=== PATIENT | female | born 1955 | race Caucasian/White ===

== ENCOUNTER 2017-08-27 16:32 | Emergency (ER) | payer MEDICARE, OTHER ==
[~2017-08-27] VITALS: Ht 167.6 cm; Wt 80.6 kg
[~2017-08-27 16:32] MED LIST: ATOR20TA42 PO; DIAZ10 PO; ECOT325T PO; HYDR10SO PO; HYDROCODONE PO; MOTI25CH PO; OMEP20TA OR; OMEP20TA PO; SOMA350T PO
[2017-08-27 16:42] VITALS: BP 145/65; PULSE 60; RESP 18; TEMP 98.6; O2SAT 99
[2017-08-27] MEDS ORDERED: LISI-515 PO (16:59)
[2017-08-27] MEDS ORDERED: ATOR20TA15 PO (16:59)
[2017-08-27] MEDS ORDERED: CELE20TA PO (16:59)
[2017-08-27] MEDS ORDERED: TIZA2TAB PO (16:59)
[2017-08-27] MEDS ORDERED: CLON0.1T PO (16:59)
[2017-08-27] MEDS ORDERED: HYDR-3583 PO (16:59)
--- NOTE | 2017-08-27 17:06 | PD ---
HPI Chief Complaint: Wound/Suture/Staple Re-Check Time Seen by Provider: 17:01 Travel History International Travel<30 days: No Contact w/Intl Traveler<30days: No Traveled to known affect area: No History of Present Illness HPI 62-year-old female presents the emergency Department with wound to the sole of the right distal lateral foot at the base of the fifth digit which consisted of a puncture wound from a "tahira tack". Patient has increased pain , warmth, and erythema to this area. Patient is unsure of her last tetanus shot. Pain is currently 7 out of 10. There is no fever or chills. Pain is worse with ambulation. Patient is allergic to acetaminophen, codeine, and propoxyphene. PFSH Past Medical History Arthritis: Yes Blood Disorders: No Cancer: No Cardiovascular Problems: No Cerebrovascular Accident: Yes Diabetes: No Diminished Hearing: No Endocrine: No Gastrointestinal Disorders: Yes Glaucoma: No Genitourinary: No Hepatitis: Yes (C) Hiatal Hernia: No Hypertension: No Immune Disorder: No Medical other: Yes (CATARAX LEFT EYE) Musculoskeletal: Yes Neurologic: Yes (VERTIGO) Psychiatric: No Reproductive: No Respiratory: No Immunizations Current: Yes Tetanus Vaccination: > 5 Years Influenza Vaccination: Yes ?: Not Menopausal: Yes Past Surgical History Abdominal Surgery: No Cardiac Surgery: No Cholecystectomy: Yes Ear Surgery: No Eye Surgery: No Genitourinary Surgery: No Gynecologic Surgery: No Neurologic Surgery: No Oral Surgery: Yes (T&A) Thoracic Surgery: No Tonsillectomy: Yes (1959--T&A) Other Surgery: Yes Social History Alcohol Use: Yes (WEEKENDS) Tobacco Use: Yes (1.5 PPD) Substance Use: No Allergies-Medications (Allergen,Severity, Reaction): Coded Allergies: acetaminophen (Unverified Allergy, Severe, NAUSEA, 08/27/17) propoxyphene (Unverified Allergy, Severe, NAUSEA, 08/27/17) codeine (Unverified Allergy, Intermediate, NAUSEA, 08/27/17) Reported Meds & Prescriptions Reported Meds & Active Scripts Active Bactrim DS (Sulfamethoxazole-Trimethoprim) 800-160 Mg Tab 1 Tab PO BID Cipro (Ciprofloxacin HCl) 500 Mg Tab 500 Mg PO BID 7 Days Reported Clonidine (Clonidine HCl) 0.1 Mg Tab 0.1 Mg PO BID Tizanidine (Tizanidine HCl) 2 Mg Tab 2 Mg PO TID Celexa (Citalopram Hydrobromide) 20 Mg Tab 20 Mg PO DAILY Hydrocodone-Acetaminophen 10-325 mg Tab 1 Tab PO Q6H PRN Atorvastatin (Atorvastatin Calcium) 20 Mg Tab 20 Mg PO HS Lisinopril 20 Mg Tab 20 Mg PO DAILY Review of Systems Except as stated in HPI: all other systems reviewed are Neg General / Constitutional: No: Fever Eyes: No: Visual changes HENT: No: Headaches Cardiovascular: No: Chest Pain or Discomfort Respiratory: No: Shortness of Breath Gastrointestinal: No: Abdominal Pain Genitourinary: No: Dysuria Musculoskeletal: Positive: Pain (see history of present illness) Skin: Positive Lesions (see history of present illness), No Rash Neurologic: No: Weakness Psychiatric: No: Depression Endocrine: No: Polydipsia Hematologic/Lymphatic: No: Easy Bruising Physical Exam Narrative GENERAL: Patient appears in mild distress. SKIN: Warm and dry. Normal color. Normal turgor. Patient has obvious puncture wound to the base of the fifth digit of the right foot. There is localized warmth, erythema extending approximately 2 cm in diameter. No significant bleeding or drainage is noted. No streaking.. Swelling is minimal. HEAD: Atraumatic. Normocephalic. EYES: Pupils equal and round. No scleral icterus. No injection or drainage. ENT: No nasal bleeding or discharge. Mucous membranes pink and moist. Pharynx is clear. Airway is patent. NECK: Trachea midline. Supple and nontender. CARDIOVASCULAR: Regular rate and rhythm. RESPIRATORY: No accessory muscle use. Clear to auscultation. Breath sounds equal bilaterally. MUSCULOSKELETAL: Extremities without clubbing, cyanosis, or edema. No obvious deformities. Patient is tenderness with palpation to the injured area of the right foot. NEUROLOGICAL: Awake and alert. No obvious cranial nerve deficits. Motor grossly within normal limits. Five out of 5 muscle strength in the arms and legs. Normal speech. PSYCHIATRIC: Appropriate mood and affect; insight and judgment normal. Data Data Last Documented VS Vital Signs Date Time Temp Pulse Resp B/P (MAP) Pulse Ox O2 Delivery O2 Flow Rate FiO2 08/27/17 16:42 98.6 60 18 145/65 (91) 99 Orders Orders Tetanus/Diphtheria Tox Adult (Tetanus/Di (12/19/17 17:15) Sulfamet-Trimeth Ds 800-160 Mg (Bactrim (08/27/17 17:15) Ciprofloxacin (Cipro) (08/27/17 17:15) [facility] Medical Decision Making Medical Screen Exam Complete: Yes Emergency Medical Condition: Yes Differential Diagnosis Puncture wound to the right foot. Cellulitis. Foreign body. Narrative Course X-ray of the right foot is ordered. Patient is given tetanus 0.5 mg IM. Patient is given Bactrim DS by mouth 1. Patient is given Cipro 500 mg by mouth 1. Patient refuses x-ray to rule out foreign body. Patient will be treated with Bactrim DS twice a day 7 days. Patient also continued on Cipro 500 mg twice a day 7 days. Patient can take Tylenol [id number] as needed for pain. Recommend warm soapy soaks twice daily for the next several days. Patient follow-up with primary care physician or return to emergency department if symptoms do not improve with the above treatment plan. Diagnosis Primary Impression: Puncture wound of sole of right foot without complication Qualified Codes: S91.331A - Puncture wound without foreign body, right foot, initial encounter Additional Impression: Cellulitis Qualified Codes: L03.115 - Cellulitis of right lower limb Referrals: Primary Care Physician Patient Instructions: Cellulitis (ED), General Instructions Additional Instructions: Patient is given tetanus 0.5 mg IM. Patient is given Bactrim DS by mouth 1. Patient is given Cipro 500 mg by mouth 1. Patient refuses x-ray to rule out foreign body. Patient will be treated with Bactrim DS twice a day 7 days. Patient also continued on Cipro 500 mg twice a day 7 days. Patient can take Tylenol [id number] as needed for pain. Recommend warm soapy soaks twice daily for the next several days. Patient follow-up with primary care physician or return to emergency department if symptoms do not improve with the above treatment plan. Scripts Sulfamethoxazole-Trimethoprim (Bactrim DS) 800-160 Mg Tab 1 TAB PO BID for Infection, #14 TAB 0 Refills Prov: Himanshu Campos MD 08/27/17 Ciprofloxacin (Cipro) 500 Mg Tab 500 MG PO BID for Infection for 7 Days, #14 TAB 0 Refills Prov: Himanshu Campos MD 08/27/17 Disposition: 01 DISCHARGE HOME Condition: Stable Sawyer Carrizales Aug 27, 2017 17:06
[2017-08-27] MEDS ORDERED: CIPROFLOXACIN 500 MG TAB PO ONE (17:15)
[2017-08-27] MEDS ORDERED: SULFAMETHOXAZOLE-TRIMETHOPRIM DS 800-160 MG TAB PO ONE (17:15)
[2017-08-27] MEDS ORDERED: TETANUS/DIPHTHERIA TOXOID ADULT 0.5 ML VIAL IM ONE (17:15)
[2017-08-27] MEDS ORDERED: BACT800T5 PO (17:18)
[2017-08-27] MEDS ORDERED: CIPR-9 PO (17:18)
== END 2017-08-27 17:42 | disposition home or self-care (01) ==
LOC: PHEFT 16:32
DX: S91.331A Puncture wound without foreign body, right foot, initial encounter (principal); L03.115 Cellulitis of right lower limb; M19.90 Unspecified osteoarthritis, unspecified site; B19.20 Unspecified viral hepatitis C without hepatic coma; F17.210 Nicotine dependence, cigarettes, uncomplicated; Z86.73 Personal history of transient ischemic attack (TIA), and cerebral infarction without residual deficits
CPT/HCPCS: 90471; 90714